=== PATIENT | male | born 1945 | race Caucasian/White ===

== ENCOUNTER → 2019-01-08 | Outpatient (CLI) | payer MEDICARE ==
[~2019-01-08] MED LIST: ALLO100T30 PO; AMOX1TAB64 PO; FLUT9.9S16 NAS; HYDR-3307 PO; LEVO100T5 PO; LOVA10TA PO; MOEX1TAB6 PO; NEBI10TA3 PO; RIVA15TA PO; RIVA20TA PO
== END | disposition home or self-care (01) ==
LOC: ROC 09:38
PROVIDERS: ATTEND Radiology Radiation Oncology
DX: C61 Malignant neoplasm of prostate (principal)
CPT/HCPCS: 99214; G0463

== ENCOUNTER → 2019-01-19 | Outpatient (CLI) | payer MEDICARE | END | disposition home or self-care (01) | LOC: ROC 09:50 | PROVIDERS: ATTEND Radiology Radiation Oncology | DX: C41.4 Malignant neoplasm of pelvic bones, sacrum and coccyx (principal) | CPT/HCPCS: 99213; G0463 ==

== ENCOUNTER 2019-02-16 07:08 | Outpatient (CLI) | payer MEDICARE ==
[~2019-02-16 07:08] MED LIST changes: -HYDR-3307 PO; +HYDR-36 PO
[2019-02-16] MEDS ORDERED: LIDOCAINE/PF 1%, 30ML IV ONE (09:45)
[2019-02-16] MEDS ORDERED: MIDAZOLAM 1 MG/ML, 5ML IVPush ONE (09:45)
[2019-02-16] MEDS ORDERED: FENTANYL PF 100 MCG/2ML IVPush ONE (09:45)
== END 2019-02-16 23:59 | disposition home or self-care (01) ==
LOC: ROC 07:08
PROVIDERS: ATTEND Radiology Radiation Oncology
DX: N42.89 Other specified disorders of prostate (principal)
CPT/HCPCS: 55876; 76942; 77332; 99156; A4648; J2250; J3010

== ENCOUNTER 2019-02-22 11:54 | Outpatient (CLI) | payer MEDICARE | END 2019-02-22 23:59 | disposition home or self-care (01) | LOC: CFH 11:54 | PROVIDERS: ATTEND Radiology Radiation Oncology | DX: C41.4 Malignant neoplasm of pelvic bones, sacrum and coccyx (principal); C61 Malignant neoplasm of prostate; M43.17 Spondylolisthesis, lumbosacral region; M43.27 Fusion of spine, lumbosacral region; M48.07 Spinal stenosis, lumbosacral region | CPT/HCPCS: 72195; 72197; A9585 ==

== ENCOUNTER 2019-12-20 07:30 | Outpatient (CLI) | payer MEDICARE ==
[~2019-12-20 07:30] MED LIST changes: +HYDR-3246 PO; -HYDR-36 PO
== END 2019-12-20 23:59 | disposition home or self-care (01) ==
LOC: ROC 07:30
PROVIDERS: ATTEND Radiology Radiation Oncology
DX: Z08 Encounter for follow-up examination after completed treatment for malignant neoplasm (principal); C41.4 Malignant neoplasm of pelvic bones, sacrum and coccyx
CPT/HCPCS: 99213; G0463

== ENCOUNTER → 2020-07-26 | Outpatient (CLI) | payer MEDICARE ==
[~2020-07-26] MED LIST changes: +CEFAZOLIN PMX 1GM/50ML 50 ML ONE
== END | disposition home or self-care (01) ==
LOC: ROC 07:08
PROVIDERS: ATTEND Radiology Radiation Oncology
DX: Z08 Encounter for follow-up examination after completed treatment for malignant neoplasm (principal); C41.4 Malignant neoplasm of pelvic bones, sacrum and coccyx
CPT/HCPCS: 99213; G0463

== ENCOUNTER 2021-02-01 07:46 | Outpatient (CLI) | payer MEDICARE ==
[~2021-02-01 07:46] MED LIST changes: -CEFAZOLIN PMX 1GM/50ML 50 ML ONE; -HYDR-3246 PO; +HYDR-3248 PO
== END 2021-02-01 23:59 | disposition home or self-care (01) ==
LOC: ROC 07:46
PROVIDERS: ATTEND Radiology Radiation Oncology
DX: Z08 Encounter for follow-up examination after completed treatment for malignant neoplasm (principal); C41.4 Malignant neoplasm of pelvic bones, sacrum and coccyx
CPT/HCPCS: 99213; G0463